=== PATIENT | female | born 1955 | race Caucasian/White ===

== ENCOUNTER → 2018-11-05 | Outpatient (CLI) | payer SELFPAY ==
[2015-01-01 10:39] VITALS: BMI 36.2
[~2018-11-05] MED LIST: ACE325 PO; AMLO-104 PO; FLU10 PO; GABA-1 PO; HCTZ25 PO; HYD2 PO; LEVI SQ; LEVO75TA68 PO; LID5T TOP; METF-420 PO; MULT-820 PO; NAP250 PO; PRA20 PO; SITA100T9 PO; THIA100T3 PO; TRAZ50 PO; VALS320T12 PO; [UNRECOGNIZED DRUG - CODE] IV
== END ==
LOC: AMB 02:05
PROVIDERS: ATTEND Nurse Practitioner
DX: E10.649 Type 1 diabetes mellitus with hypoglycemia without coma (principal); R53.83 Other fatigue
CPT/HCPCS: A0998